=== PATIENT | male | born 1970 | race Caucasian/White ===

== ENCOUNTER 2024-02-04 10:40 | Inpatient (IN) | payer OTHER ==
[2024-02-04 10:59] VITALS: BMI 24.7
[2024-02-04] MEDS ORDERED: POLYETHYLENE GLYCOL (HEALTHYLAX) 3350 17 GM PACKET PO PRN (11:42)
[2024-02-04] MEDS ORDERED: NALOXONE HCL 0.4 MG/ML VIAL IM PRN (11:42)
[2024-02-04] MEDS ORDERED: IBUPROFEN 400 MG TABLET (FP) PO PRN (11:42)
[2024-02-04] MEDS ORDERED: hydrOXYzine PAMOATE 25 MG CAPSULE (FP) PO PRN (11:42)
[2024-02-04] MEDS ORDERED: guaiFENesin 600 MG TABLET.ER (FP) PO PRN (11:42)
[2024-02-04] MEDS ORDERED: NALOXONE HCL (KLOXXADO) 8 MG SPRAY NS PRN (11:42)
[2024-02-04] MEDS ORDERED: BISMUTH SUBSALICYLATE 524 MG/30 ML PO PRN (11:42)
[2024-02-04] MEDS ORDERED: ONDANSETRON *ODT* 4 MG TABLET SL PRN (11:42)
[2024-02-04] MEDS ORDERED: chlordiazePOXIDE HCL 25 MG CAPSULE PO PRN (11:42)
[2024-02-04] MEDS ORDERED: LOPERAMIDE HCL 2 MG CAPSULE PO PRN (11:42)
[2024-02-04] MEDS ORDERED: BENZOCAINE/MENTHOL (CHLORASEPTIC ) LOZENGE MM PRN (11:42)
[2024-02-04] MEDS ORDERED: BENZONATATE 200 MG CAPSULE PO PRN (11:42)
[2024-02-04] MEDS ORDERED: ACETAMINOPHEN 325 MG TABLET (FP) PO PRN (11:42)
[2024-02-04] MEDS ORDERED: MAGNESIUM HYDROX 2400MG/30ML ORAL SUSPENSION 30 ML CUP PO PRN (11:42)
[2024-02-04] MEDS ORDERED: DICYCLOMINE HCL 10 MG CAPSULE PO PRN (11:42)
[2024-02-04] MEDS ORDERED: PRENATAL VITAMINS W/ FOLIC ACID TABLET (FP) PO ONE (12:04)
[2024-02-04] MEDS ORDERED: NICOTINE 21 MG/24 HOURS TOPICAL PATCH ONE (12:04)
[2024-02-04] MEDS ORDERED: chlordiazePOXIDE HCL 25 MG CAPSULE ONE (12:04)
[2024-02-04] MEDS: chlordiazePOXIDE HCL 25 MG CAPSULE PO SCH (12:07)
[2024-02-04] MEDS: NICOTINE 21 MG/24 HOURS TOPICAL PATCH TD SCH (12:09)
[2024-02-04] MEDS: BACITRACIN 0.9 GM PACKET TP SCH (12:10)
[2024-02-04] MEDS: PRENATAL VITAMINS W/ FOLIC ACID TABLET (FP) PO SCH (12:36)
[2024-02-04] MEDS: methaDONE HCL 10 MG TABLET PO ONE (12:48)
[2024-02-04] MEDS: cloNIDine HCL 0.1 MG TABLET PO SCH (13:14)
[2024-02-04] MEDS ORDERED: methaDONE HCL 10 MG TABLET PO PRN (14:13)
[2024-02-04] MEDS: MELATONIN 5 MG TABLETS PO SCH (22:42)
[2024-02-04] MEDS: THIAMINE HCL 100 MG TABLET (FP) PO SCH (22:42)
[2024-02-05] MEDS: methaDONE 40 MG, methaDONE 10 MG PO ONE (05:34)
[2024-02-05 11:52] LABS: POTASSIUM 4.3 mmol/L (3.5-5.1)
[2024-02-05 11:54] LABS: HEMATOCRIT 36.3 % (35.4-49); MCHC 33.1 g/dl (32.0-35.9); MEAN CELL VOLUME 90.5 fl (80-96); PLATELET COUNT 321 10^3/uL (134-434); RBC 4.01 M/mm3 (4.00-5.60); RDW 15.6 % (11.9-15.9)
[2024-02-05 12:00] LABS: CREATININE 0.9 mg/dL (0.55-1.3)
[2024-02-05 12:01] LABS: CALCIUM 8.5 mg/dL (8.5-10.1)
[2024-02-05 12:02] LABS: ALBUMIN 3.2 g/dl (3.4-5.0); BLOOD UREA NITROGEN 10.9 mg/dL (7-18); TOT PROT 5.9 g/dl (6.4-8.2)
[2024-02-05 12:08] LABS: BILIRUBIN,TOTAL 0.4 mg/dL (0.2-1)
[2024-02-05] MEDS: BACITRACIN 0.9 GM PACKET TP SCH (14:50)
[2024-02-06] MEDS ORDERED: cloNIDine HCL 0.1 MG TABLET PO PRN
[2024-02-06] MEDS: chlordiazePOXIDE HCL 25 MG CAPSULE PO SCH (05:22)
[2024-02-06] MEDS ORDERED: methaDONE 40 MG, methaDONE 20 MG PO ONE (06:00)
[2024-02-06] MEDS: MELATONIN 5 MG TABLETS PO PRN (22:14)
[2024-02-07] MEDS ORDERED: chlordiazePOXIDE HCL 10 MG CAPSULE PO PRN
[2024-02-07] MEDS: chlordiazePOXIDE HCL 10 MG CAPSULE PO SCH (05:46)
[2024-02-07] MEDS ORDERED: methaDONE 40 MG, methaDONE 30 MG PO ONE (06:00)
[2024-02-07] MEDS: LACTULOSE 20 GM/30 ML UDC (FOR ORAL USE ONLY) PO SCH (17:26)
[2024-02-07] MEDS: methaDONE 40 MG, methaDONE 20 MG PO ONE (17:27)
[2024-02-07] MEDS: METHOCARBAMOL 500 MG TABLET PO PRN (22:35)
[2024-02-07] MEDS: MUPIROCIN 2% TOPICAL OINTMENT 22 GM TUBE TP SCH (22:36)
[2024-02-08] MEDS ORDERED: methaDONE HCL 40 MG DISPERSABLE TABLET PO ONE (06:00)
[2024-02-08] MEDS: chlordiazePOXIDE HCL 10 MG CAPSULE PO SCH (06:18)
[2024-02-08] MEDS: methaDONE 40 MG, methaDONE 30 MG PO ONE (09:21)
[2024-02-08] MEDS: MAG HYDROX/AL HYDROX/SIMETH 30 ML UNIT-DOSE CUP PO PRN (11:13)
[2024-02-08] MEDS: SULFAMETHOXAZOLE/TRIMETHOPRIM 800MG/160MG D.S. TABLET PO SCH (22:30)
[2024-02-09] MEDS: IBUPROFEN 600 MG TABLET (FP) PO PRN (01:21)
[2024-02-09] MEDS: chlordiazePOXIDE HCL 10 MG CAPSULE PO ONE (05:19)
[2024-02-09] MEDS: methaDONE HCL 40 MG DISPERSABLE TABLET PO ONE (05:19)
[2024-02-09] MEDS ORDERED: methaDONE 80 MG, methaDONE 10 MG PO ONE (06:00)
[2024-02-09 20:40] VITALS: RESP 18
[2024-02-09] MEDS: RIFAXIMIN 550 MG TABLET PO SCH (22:58)
[2024-02-10] MEDS: methaDONE HCL 40 MG DISPERSABLE TABLET PO ONE (09:46)
[2024-02-10 09:53] VITALS: BP 120/63; PULSE 89; TEMP 97.3
== END 2024-02-10 09:49 | disposition home or self-care (01) | DRG 897 ==
LOC: YASAS 10:40 → Y6N 11:18
PROVIDERS: ADMIT Allergy & Immunology; ATTEND Surgery
PROC: HZ2ZZZZ Detoxification Services for Substance Abuse Treatment (ICD-10-PCS; principal; 2024-02-04)
DX: F11.23 Opioid dependence with withdrawal (principal); Z59.01 Sheltered homelessness; F10.230 Alcohol dependence with withdrawal, uncomplicated; F17.210 Nicotine dependence, cigarettes, uncomplicated; L08.89 Other specified local infections of the skin and subcutaneous tissue; B95.62 Methicillin resistant Staphylococcus aureus infection as the cause of diseases classified elsewhere; R41.82 Altered mental status, unspecified; R79.89 Other specified abnormal findings of blood chemistry
CPT/HCPCS: 36415; 80053; 80307; 82140; 85027; 86780; 87070; 87186; 87205

== ENCOUNTER 2024-02-09 12:05 | Emergency (ER) | payer OTHER ==
[2024-02-09 12:51] VITALS: BP 123/64; PULSE 66; RESP 12; TEMP 97.5; BMI 24.3
[2024-02-09 13:23] LABS: EOS % 6.1 % (0-4.5); HEMATOCRIT 35.9 % (35.4-49); HEMOGLOBIN 11.6 GM/dL (11.7-16.9); LYMPH % 16.9 % (8-40); MCH 29.7 pg (25.7-33.7); MCHC 32.4 g/dl (32.0-35.9); MEAN CELL VOLUME 91.8 fl (80-96); MEAN PLT VOLUME 7.2 fl (7.5-11.1); MONO % 6.4 % (3.8-10.2); NEUT % 69.6 % (42.8-82.8); PLATELET COUNT 329 10^3/uL (134-434); RBC 3.92 M/mm3 (4.00-5.60); RDW 15.2 % (11.9-15.9); WHITE BLOOD COUNT 8.8 K/mm3 (4.0-10.0)
[2024-02-09 13:25] LABS: VENOUS BASE EXCESS -0.2 mmol/L (-2-2); VENOUS O2 SATURATION 90.3 % (70-80); VENOUS PCO2 53.1 mmHg (38-52); VENOUS PH 7.318 (7.310-7.410)
[2024-02-09 13:51] LABS: CHLORIDE 102 mmol/L (98-107); SODIUM 136 mmol/L (136-145)
[2024-02-09 13:52] LABS: CALCIUM 8.3 mg/dL (8.5-10.1)
[2024-02-09 13:53] LABS: ALBUMIN 3.3 g/dl (3.4-5.0); ANION GAP 2 mmol/L (4-13); BLOOD UREA NITROGEN 19.8 mg/dL (7-18); CO2 32 mmol/L (21-32); GLUCOSE,RANDOM 85 mg/dL (74-106)
[2024-02-09 13:56] LABS: CREATININE 0.9 mg/dL (0.55-1.3); PHOSPHOROUS 3.9 mg/dL (2.5-4.9); SGOT/AST 36 U/L (15-37); SGPT/ALT 42 U/L (13-61)
[2024-02-09 13:58] LABS: BILIRUBIN,TOTAL 0.1 mg/dL (0.2-1); TOT PROT 6.6 g/dl (6.4-8.2)
[2024-02-09 13:59] LABS: ALK PHOS 79 U/L (45-117)
[2024-02-09 15:30] LABS: URINE APPEARANCE CLEAR; URINE BILIRUBIN NEGATIVE (NEGATIVE); URINE COLOR YELLOW; URINE GLUCOSE (UA) NEGATIVE (NEGATIVE); URINE KETONE NEGATIVE (NEGATIVE); URINE LEUK ESTERASE NEGATIVE (NEGATIVE); URINE NITRITE NEGATIVE (NEGATIVE); URINE PROTEIN NEGATIVE (NEGATIVE); URINE UROBILINOGEN 0.2 mg/dL (0.2-1.0)
[2024-02-09 15:49] LABS: OPIATES, URI NEGATIVE (NEGATIVE); PHENCYCLIDINE,URINE NEGATIVE (NEGATIVE)
[2024-02-09 15:50] LABS: URINE AMPHETAMINES NEGATIVE (NEGATIVE)
[2024-02-09 15:51] LABS: COCAINE, UR POSITIVE (NEGATIVE); METHADONE, UR POSITIVE (NEGATIVE); URINE BARBITURATES NEGATIVE (NEGATIVE); URINE BENZODIAZEPINES POSITIVE (NEGATIVE)
[2024-02-09] MEDS ORDERED: MAG HYDROX/AL HYDROX/SIMETH 30 ML UNIT-DOSE CUP ONE (15:59)
[2024-02-09] MEDS: MAG HYDROX/AL HYDROX/SIMETH 30 ML UNIT-DOSE CUP PO ONE (16:00)
== END 2024-02-09 16:41 | disposition home or self-care (01) ==
LOC: JER 12:05
DX: F11.90 Opioid use, unspecified, uncomplicated (principal); F10.90 Alcohol use, unspecified, uncomplicated; R40.4 Transient alteration of awareness; Z20.822 Contact with and (suspected) exposure to COVID-19
CPT/HCPCS: 0241U-QW; 36415; 70450-TC; 80053; 80307; 81003; 82140; 82803; 84100; 84484; 85025; 86850; 86900; 86901; 87086; 93005; 93010; 99285-25